=== PATIENT | female | born 1955 | race Caucasian/White ===

== ENCOUNTER 2017-07-20 17:52 | Emergency (ER) | payer BC ==
[~2017-07-20] VITALS: Ht 167.6 cm; Wt 68.0 kg
[2017-07-20 18:03] VITALS: BP_SYST 147
[2017-07-20 20:24] VITALS: BP_SYST 138
== END 2017-07-20 20:26 | disposition home or self-care (01) ==
LOC: SED 17:52
DX: S00.83XA Contusion of other part of head, initial encounter (principal); S20.219A Contusion of unspecified front wall of thorax, initial encounter; S00.31XA Abrasion of nose, initial encounter; S80.212A Abrasion, left knee, initial encounter; S80.211A Abrasion, right knee, initial encounter; M06.9 Rheumatoid arthritis, unspecified; W01.198A Fall on same level from slipping, tripping and stumbling with subsequent striking against other object, initial encounter; Y93.01 Activity, walking, marching and hiking; Y92.89 Other specified places as the place of occurrence of the external cause; Y99.8 Other external cause status
CPT/HCPCS: 70486-TC; 71045; 73564; 99284

== ENCOUNTER 2018-01-30 20:16 | Emergency (ER) | payer BC ==
[~2018-01-30] VITALS: Ht 165.1 cm; Wt 68.9 kg
[2018-01-30 20:18] VITALS: BP_SYST 153
[2018-01-30] MEDS ORDERED: NITROGLYCERIN 0.4 MG TAB.SUBL SL ONE (20:45)
[2018-01-30] MEDS ORDERED: HEPARIN SODIUM,PORCINE 5000 UNITS/ML VIAL IVP ONE (20:45)
[2018-01-30] MEDS ORDERED: ASPIRIN 81 MG TAB.CHEW PO ONE (20:45)
[2018-01-30 20:57] LABS: BASOPHILS # (AUTO) 0.1 K/uL (0.0-0.2); BASOPHILS % (AUTO) 0.9 % (0.0-2.0); EOSINOPHILS # (AUTO) 0.2 K/uL (0.0-0.4); EOSINOPHILS % (AUTO) 1.8 % (0.0-4.0); HEMATOCRIT 44.7 % (36-48); HEMOGLOBIN 15.3 g/dL (12.0-16.0); LYMPHOCYTES # (AUTO) 2.1 K/uL (1.0-5.5); LYMPHOCYTES % (AUTO) 22.2 % (20.5-51.5); MEAN CORPUSCULAR HEMOGLOBIN 32 pg (27-31); MEAN CORPUSCULAR HGB CONC 34 % (32-36); MEAN CORPUSCULAR VOLUME 93 fL (79.0-98.0); MONOCYTES # (AUTO) 0.4 K/uL (0.0-1.0); MONOCYTES % (AUTO) 4.3 % (1.7-9.3); NEUTROPHILS # (AUTO) 6.5 K/uL (1.8-7.7); NEUTROPHILS % (AUTO) 70.8 % (40.0-70.0); PLATELET COUNT (AUTO) 328 K/uL (130-430); RED BLOOD CELL COUNT(AUTO) 4.81 MIL/uL (4.2-6.2); RED CELL DISTRIBUTION WIDTH 12.9 % (9.0-15.0); WHITE BLOOD COUNT (AUTO) 9.3 K/uL (4.8-10.8)
[2018-01-30 21:02] VITALS: BP_SYST 155
[2018-01-30 21:07] LABS: CALCIUM 9.8 mg/dL (8.4-11.0); CREATININE 0.96 mg/dL (0.55-1.30); POTASSIUM 4.8 mmol/L (3.5-5.1)
[2018-01-30 21:12] LABS: PROTHROMBIN TIME 10.1 SECS (9.5-12.5)
[2018-01-30 21:13] LABS: ALBUMIN 3.9 g/dL (3.4-4.8); TOTAL BILIRUBIN 0.2 mg/dL (0.0-1.0)
== END 2018-01-30 21:02 | disposition short-term general hospital (02) ==
LOC: SED 20:16
DX: I21.3 ST elevation (STEMI) myocardial infarction of unspecified site (principal); M79.7 Fibromyalgia; M06.9 Rheumatoid arthritis, unspecified
CPT/HCPCS: 36415; 80053; 82550; 83880; 84484; 85025; 85610; 85730; 93005; 99285; J1644

== ENCOUNTER 2019-08-18 17:28 | Emergency (ER) | payer BC ==
[~2019-08-18] VITALS: Ht 167.6 cm; Wt 69.9 kg
[2019-08-18 17:31] VITALS: BP_SYST 153
--- NOTE | 2019-08-18 17:41 | NUR ---
Patient triaged and placed in waiting room. VSS and patient appears in no acute distress at this time. Accompanied by , awaiting available bed, and MD notified of need for MSE.
--- NOTE | 2019-08-18 18:21 | NUR ---
Patient left without being seen.
== END 2019-08-18 18:17 | disposition left against medical advice (07) ==
LOC: SED 17:28
DX: R07.89 Other chest pain (principal); R11.0 Nausea; Z53.21 Procedure and treatment not carried out due to patient leaving prior to being seen by health care provider